=== PATIENT | female | born 1980 | race Caucasian/White ===

== ENCOUNTER 2023-11-01 16:20 | Inpatient (IN) | payer MEDICAID, SELFPAY ==
[~2023-11-01] VITALS: Ht 157.5 cm; Wt 81.4 kg
[2023-11-01] MEDS ORDERED: HALOPERIDOL 5 MG TABLET PO PRN (18:15)
[2023-11-01] MEDS ORDERED: ZOLPIDEM TARTRATE 10 MG TABLET PO PRN (18:15)
[2023-11-01 18:41] VITALS: BP 143/90; PULSE 78; RESP 18; TEMP 97.5
[2023-11-01] MEDS ORDERED: INFLUENZA VIRUS VACCINE QVS 2023-24 (6MO+)/PF 60 MCG/0.5 ML SYRINGE IM. ONE (19:00)
[2023-11-01 19:21] LABS: GLUCOMETER DEV NAME(LOC) POC.BV; POC SARS-COV2 AG, FIA NEGATIVE (NEGATIVE)
[2023-11-01 21:08] VITALS: BP 153/94; PULSE 65; RESP 18; TEMP 97.5; O2SAT 95
[2023-11-01] MEDS ORDERED: CloNIDine HCL 0.1 MG TABLET PO PRN (23:00)
[2023-11-02] MEDS ORDERED: ALBUTEROL SULFATE HFA 90 MCG/PUFF 8 GM INHALER IH PRN (06:00)
[2023-11-02] MEDS ORDERED: ACETAMINOPHEN 325 MG TABLET PO PRN (06:00)
[2023-11-02] MEDS ORDERED: OMEPRAZOLE 20 MG CAPSULE PO PRN (06:00)
[2023-11-02] MEDS ORDERED: MAG HYDROX/ALUMINUM HYD/SIMETH ES 30 ML SUSPENSION UDCUP PO PRN (06:00)
[2023-11-02] MEDS ORDERED: BENZOCAINE/MENTHOL LOZENGE PO PRN (06:00)
[2023-11-02] MEDS ORDERED: CloNIDine HCL 0.1 MG TABLET PO PRN (06:00)
[2023-11-02] MEDS ORDERED: BACITRACIN 28 GM OINTMENT TP PRN (06:00)
[2023-11-02] MEDS ORDERED: IBUPROFEN 600 MG TABLET PO PRN (06:00)
[2023-11-02] MEDS ORDERED: ONDANSETRON HCL 4 MG TABLET PO PRN (06:00)
[2023-11-02] MEDS ORDERED: MAGNESIUM HYDROXIDE SUSPENSION 30 ML UDCUP PO PRN (06:00)
[2023-11-02] MEDS ORDERED: LOPERAMIDE HCL 2 MG CAPSULE PO PRN (06:00)
[2023-11-02] MEDS ORDERED: PETROLATUM,WHITE 28 GM JELLY TP PRN (06:00)
[2023-11-02] MEDS ORDERED: DOCUSATE SODIUM 100 MG CAPSULE PO PRN (06:00)
[2023-11-02 07:07] LABS: BASOPHILS % (AUTO) 0.6 % (0.0-2.0); EOSINOPHILS % (AUTO) 5.5 % (1.0-6.0); HEMATOCRIT 35.8 % (36-46); HEMOGLOBIN 11.7 g/dL (12.0-16.0); LYMPHOCYTES # (AUTO) 1.7 K/uL (1.0-4.8); MEAN CORPUSCULAR HEMOGLOBIN 26.2 pg (26.0-34.0); MEAN CORPUSCULAR HGB CONC 32.7 G/dL (31.0-37.0); MEAN CORPUSCULAR VOLUME 80 fL (80-100); MONOCYTES # (AUTO) 0.4 K/uL (0.1-1.0); MONOCYTES % (AUTO) 8.5 % (2.0-9.0); NEUTROPHILS # (AUTO) 2.3 K/uL (1.8-7.7); NEUTROPHILS % (AUTO) 49.4 % (40.0-70.0); PLATELET COUNT (AUTO) 235 K/uL (150-450); RED BLOOD CELL COUNT(AUTO) 4.47 MIL/uL (4.00-5.20); RED CELL DISTRIBUTION WIDTH 16.6 % (11.5-14.5); WHITE BLOOD COUNT (AUTO) 4.7 K/uL (4.5-11.0)
[2023-11-02 07:35] LABS: ALANINE AMINOTRANSFERASE 23 U/L (12-78); ALBUMIN 3.5 g/dL (3.4-5.0); ALKALINE PHOSPHATASE 99 U/L (46-116); ANION GAP 7 mmol/L (8-16); ASPARTATE AMINOTRANSFERASE 20 U/L (15-37); BILIRUBIN,TOTAL 0.5 mg/dL (0.1-1.0); CALCIUM, TOTAL 8.8 mg/dL (8.8-10.5); CARBON DIOXIDE 29 mmol/L (22-29); CHLORIDE 107 mmol/L (98-107); CHOLESTEROL 177 mg/dL (131-200); CREATININE 0.63 mg/dL (0.60-1.30); FREE T4 (FREE THYROXINE) 0.99 ng/dL (0.76-1.46); GLOMERULAR FILTR. RATE CALC > 60 mL/min (>60); GLUCOSE,RANDOM 96 mg/dL (70-110); HCG,QUANTITATIVE < 1 mIU/mL (0-6); HDL CHOLESTEROL 59 mg/dL (40-60); LDL CHOL (CALC.) 105 mg/dL (0-130); POTASSIUM 4.3 mmol/L (3.5-5.1); SODIUM SERUM 143 mmol/L (136-145); TOTAL PROTEIN, SERUM 6.8 g/dL (6.4-8.2); TRIGLYCERIDES 67 mg/dL (15-150); UREA NITROGEN, BLOOD 9 mg/dL (7-18)
[2023-11-02 07:55] LABS: THYROID STIMULATING HORMONE 1.36 uIU/mL (0.36-3.74)
[2023-11-02] MEDS: LISINOPRIL 10 MG TABLET PO SCH (08:32)
[2023-11-02 08:40] VITALS: BP 110/74; PULSE 96; RESP 17; TEMP 97.5; O2SAT 98
[2023-11-02 08:56] LABS: PLATELET MORPHOLOGY COMMENT GIANT PLTS PRESENT
[2023-11-02] MEDS: RisperiDONE 1 MG TABLET PO SCH (17:22)
[2023-11-02 21:02] VITALS: BP 111/59; PULSE 81; RESP 18; TEMP 98; O2SAT 97
[2023-11-03] MEDS: RisperiDONE 1 MG TABLET PO SCH ×2 (08:10→16:32)
[2023-11-03] MEDS: LISINOPRIL 10 MG TABLET PO SCH (08:10)
[2023-11-03 08:58] VITALS: BP 109/65; PULSE 89; RESP 17; TEMP 96.9; O2SAT 97
[2023-11-03] MEDS: LORazepam 2 MG TABLET PO PRN (16:38)
[2023-11-03 21:09] VITALS: BP 109/66; PULSE 72; RESP 17; TEMP 97.3; O2SAT 97
[2023-11-04] MEDS: LISINOPRIL 10 MG TABLET PO SCH (08:29)
[2023-11-04] MEDS: RisperiDONE 1 MG TABLET PO SCH ×2 (08:29→16:39)
[2023-11-04 11:10] VITALS: BP 126/73; PULSE 84; RESP 17; TEMP 97.6; O2SAT 99
[2023-11-04 17:06] VITALS: BP 134/78; PULSE 84; RESP 18
[2023-11-04] MEDS: LORazepam 2 MG TABLET PO PRN (17:06)
[2023-11-04 20:09] VITALS: BP 139/83; PULSE 96; RESP 18; TEMP 97.8
[2023-11-05] MEDS: LISINOPRIL 10 MG TABLET PO SCH (08:13)
[2023-11-05] MEDS: RisperiDONE 1 MG TABLET PO SCH ×2 (08:13→17:00)
[2023-11-05 08:32] VITALS: BP 119/68; PULSE 97; RESP 16; TEMP 98; O2SAT 98
[2023-11-05 20:10] VITALS: BP 122/83; PULSE 88; RESP 18; TEMP 97.9; O2SAT 97
[2023-11-06 00:16] VITALS: BP 122/83; PULSE 88; RESP 18; TEMP 97.9; O2SAT 97
[2023-11-06 08:15] VITALS: BP 119/72; PULSE 76; RESP 16; TEMP 98; O2SAT 97
[2023-11-06] MEDS: LISINOPRIL 10 MG TABLET PO SCH (08:27)
[2023-11-06] MEDS: RisperiDONE 1 MG TABLET PO SCH ×3 (08:28→17:00)
[2023-11-06] MEDS: LORazepam 2 MG TABLET PO PRN (15:55)
[2023-11-06 21:45] VITALS: BP 115/76; PULSE 87; RESP 17; TEMP 98.1; O2SAT 100
[2023-11-07 08:21] VITALS: BP 126/84; PULSE 79; RESP 16; TEMP 98; O2SAT 98
[2023-11-07] MEDS: LISINOPRIL 10 MG TABLET PO SCH (08:39)
[2023-11-07] MEDS: LORazepam 2 MG TABLET PO PRN (08:39)
[2023-11-07] MEDS: RisperiDONE 1 MG TABLET PO SCH ×2 (08:39→15:55)
[2023-11-07 22:42] VITALS: BP 135/75; PULSE 81; RESP 17; TEMP 97.3; O2SAT 100
[2023-11-08] MEDS ORDERED: RISP-31 PO (01:10)
[2023-11-08] MEDS: LISINOPRIL 10 MG TABLET PO SCH (08:39)
[2023-11-08] MEDS: RisperiDONE 1 MG TABLET PO SCH (08:39)
[2023-11-08] MEDS: LORazepam 2 MG TABLET PO PRN (08:42)
[2023-11-08] MEDS ORDERED: LISI-661 PO (09:20)
== END 2023-11-08 11:36 | disposition home or self-care (01) | DRG 750 ==
LOC: EDBD 19:03 → B3A 19:03
PROVIDERS: ADMIT Psychiatry & Neurology Psychiatry; ATTEND Psychiatry & Neurology Psychiatry
DX: F25.9 Schizoaffective disorder, unspecified (principal); F10.90 Alcohol use, unspecified, uncomplicated; F15.90 Other stimulant use, unspecified, uncomplicated; F41.9 Anxiety disorder, unspecified; G47.00 Insomnia, unspecified; I10 Essential (primary) hypertension; Z20.822 Contact with and (suspected) exposure to COVID-19; K21.9 Gastro-esophageal reflux disease without esophagitis; M54.9 Dorsalgia, unspecified; Z91.013 Allergy to seafood
CPT/HCPCS: 80053; 80061; 84439; 84443; 84702; 85025